=== PATIENT | female | born 1945 | race Caucasian/White ===

== ENCOUNTER 2021-05-13 14:45 | Emergency (ER) | payer MEDICARE ==
[~2021-05-13] VITALS: Ht 167.6 cm; Wt 59.0 kg
[2021-05-13 16:18] LABS: HEMOGLOBIN 14.2 gm/dl (12.3-15.3); RED BLOOD COUNT 5.8 M/UL (4.00-5.10); WHITE BLOOD COUNT 6.3 K/UL (4.5-11.0)
[2021-05-13] MEDS ORDERED: ONDANSETRON ODT4 MG SL (17:26)
== END 2021-05-13 18:45 | disposition home or self-care (01) ==
LOC: EDBD 14:45 → ER1 14:45
PROVIDERS: Physician Assistant
DX: Z23 Encounter for immunization (principal); U07.1 COVID-19; J12.82 Pneumonia due to coronavirus disease 2019; R20.2 Paresthesia of skin; E03.9 Hypothyroidism, unspecified; Z88.0 Allergy status to penicillin; Z90.49 Acquired absence of other specified parts of digestive tract
CPT/HCPCS: 71045; 80053; 81001; 82550; 82553; 83874; 84484; 85025; 93005; 99284; J2405; M0243

== ENCOUNTER → 2022-04-13 | Emergency (ER) | payer MEDICARE ==
[~2022-04-13] MED LIST: ONDANSETRON ODT4 MG SL
[2022-04-13 22:47] LABS: HEMOGLOBIN 12.6 gm/dl (12.3-15.3); RED BLOOD COUNT 5.02 M/UL (4.00-5.10); WHITE BLOOD COUNT 8.2 K/UL (4.5-11.0)
[2022-04-13 22:56] LABS: BUN/CREATININE RATIO 14 (0-10)
== END | disposition home or self-care (01) ==
LOC: ER1 22:25
PROVIDERS: Student in an Organized Health Care Education/Training Program
DX: I63.9 Cerebral infarction, unspecified (principal); R29.705 NIHSS score 5; R40.2410 Glasgow coma scale score 13-15, unspecified time; E03.9 Hypothyroidism, unspecified; I10 Essential (primary) hypertension; Z88.0 Allergy status to penicillin; Z51.81 Encounter for therapeutic drug level monitoring
CPT/HCPCS: 70450; 70496; 70498; 80053; 85025; 85610; 85730; 93005; 99285; J2997; Q9967